=== PATIENT | female | born 1990 | race African-American/Black ===

== ENCOUNTER 2018-11-07 00:21 | Emergency (ER) | payer MEDICARE ==
[~2018-11-07] VITALS: Ht 167.6 cm; Wt 67.1 kg
[2018-11-07] MEDS ORDERED: KETOROLAC 30MG/ML VIAL IV ONE (02:15)
[2018-11-07] MEDS ORDERED: DIPHENHYDRAMINE 50MG/ML VIAL IV ONE (02:15)
[2018-11-07] MEDS ORDERED: PROCHLORPERAZINE MALEATE 10MG TABLET PO ONE (02:15)
[2018-11-07 02:35] LABS: CLARITY URINE TURBID (CLEAR); COLOR URINE YELLOW (YELLOW); KETONES URINE NEGATIVE (NEGATIVE); LEUKOCYTE ESTERASE URINE NEGATIVE (NEGATIVE); NITRITE URINE NEGATIVE (NEGATIVE); OCCULT BLOOD URINE 3+ (NEGATIVE); PH URINE 7.5 (4.5-8.0); PROTEIN URINE NEGATIVE (NEGATIVE); SPECIFIC GRAVITY URINE 1.019 (1.005-1.030)
[2018-11-07 03:57] VITALS: BP 105/68
== END 2018-11-07 03:59 | disposition home or self-care (01) ==
LOC: ER 00:21
DX: G43.909 Migraine, unspecified, not intractable, without status migrainosus (principal); F17.200 Nicotine dependence, unspecified, uncomplicated; Z98.890 Other specified postprocedural states
CPT/HCPCS: 81003; 81025; 96374; 96375; 99283; J1200; J1885; Q0164